=== PATIENT | female | born 1980 | race American Indian/Alaskan Native ===

== ENCOUNTER 2017-06-27 20:58 | Emergency (ER) | payer MEDICAID ==
[2017-06-27] MEDS ORDERED: TYLENOL ONE (23:30)
[2017-06-27] MEDS ORDERED: TYLENOL PO ONE (23:48)
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
[2017-06-28] MEDS ORDERED: NORCO 5/325 PO ONE (01:11)
[2017-06-28] MEDS ORDERED: FLEXERIL PO ONE (01:11)
[2017-06-28 02:24] VITALS: BP 123/83
== END 2017-06-28 01:38 | disposition home or self-care (01) ==
LOC: ED 20:58
DX: S16.1XXA Strain of muscle, fascia and tendon at neck level, initial encounter (principal); M54.6 Pain in thoracic spine; R51 Headache; M25.511 Pain in right shoulder; V89.2XXA Person injured in unspecified motor-vehicle accident, traffic, initial encounter; Y93.89 Activity, other specified; Y92.89 Other specified places as the place of occurrence of the external cause; Y99.8 Other external cause status
CPT/HCPCS: 99282

== ENCOUNTER 2019-11-11 19:13 | Emergency (ER) | payer OTHER, MEDICAID ==
[2019-11-12] MEDS ORDERED: IBUPROFEN 800 MG TAB PO ONE (00:10)
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
[2019-11-12 02:53] VITALS: BP 116/69
== END 2019-11-12 02:30 | disposition home or self-care (01) ==
LOC: ED 19:13
DX: S16.1XXA Strain of muscle, fascia and tendon at neck level, initial encounter (principal); M54.89 Other dorsalgia; V89.2XXA Person injured in unspecified motor-vehicle accident, traffic, initial encounter; Y93.89 Activity, other specified; Y92.410 Unspecified street and highway as the place of occurrence of the external cause; Y99.8 Other external cause status
CPT/HCPCS: 72040; 72070; 72100

== ENCOUNTER 2022-05-02 13:32 | Emergency (ER) | payer MEDICAID ==
[2022-05-02] MEDS ORDERED: KETOROLAC 30 MG/1 ML INJ IM ONE (14:40)
[2022-05-02] MEDS ORDERED: dexAMETHasone 20 MG/5 ML VIAL IM ONE (14:40)
--- NOTE | 2022-05-02 14:41 | Emergency Department Report ---
ED Extremity Problem HPI - General Chief complaint: Pain General Stated complaint: NECK AND SHOULDER PAIN Source: patient Mode of arrival: Ambulatory Limitations: No Limitations - History of Present Illness Initial comments: 41-year-old female presented ED complaining neck and shoulder pain x5 days. Patient states that she was sleeping on the floor x2 days. Patient states she awakened with stiffness in her neck that has progressed to her bilateral shoulder. Patient able to move extremity without any difficulty. Denies any trauma. No obvious deformity noted. No Distracting injury noted. No edema noted. Patient is ambulatory. No acute distress noted. No Ill appearance noted. She denies any IV drug use. MD Complaint: extremity pain -: This morning Location: upper extremity History of Same: Yes Radiation: none Severity scale (0 -10): 8 Quality: aching Consistency: intermittent Improves with: nothing Worsens with: nothing - Related Data Previous Rx's Medication Instructions Recorded Last Taken Type Cyclobenzaprine [Flexeril] 10 mg PO TID PRN 15 Days #30 tab 05/02/22 Unknown Rx Ketorolac [Toradol] 10 mg PO Q6H PRN 5 Days #20 tab 05/02/22 Unknown Rx predniSONE [Deltasone] 50 mg PO QDAY 5 Days #5 tab 05/02/22 Unknown Rx Allergies Allergy/AdvReac Type Severity Reaction Status Date / Time No Known Allergies Allergy Verified 05/02/22 14:07 ED Review of Systems ROS: Stated complaint: NECK AND SHOULDER PAIN Other details as noted in HPI Constitutional: denies: chills, fever Eyes: denies: eye pain, eye discharge, vision change ENT: denies: ear pain, throat pain Respiratory: denies: cough, shortness of breath, wheezing Cardiovascular: denies: chest pain, palpitations Endocrine: no symptoms reported Gastrointestinal: denies: abdominal pain, nausea, diarrhea Genitourinary: denies: urgency, dysuria, discharge Musculoskeletal: denies: back pain, joint swelling, arthralgia Skin: denies: rash, lesions Neurological: denies: headache, weakness, paresthesias Psychiatric: denies: anxiety, depression Hematological/Lymphatic: denies: easy bleeding, easy bruising ED Past Medical Hx - Past Medical History Previous Medical History?: No - Surgical History Past Surgical History?: No - Social History Smoking Status: Current Every Day Smoker Substance Use Type: Marijuana - Medications Home Medications: Home Medications Medication Instructions Recorded Confirmed Last Taken Type Cyclobenzaprine [Flexeril] 10 mg PO TID PRN 15 Days #30 tab 05/02/22 Unknown Rx Ketorolac [Toradol] 10 mg PO Q6H PRN 5 Days #20 tab 05/02/22 Unknown Rx predniSONE [Deltasone] 50 mg PO QDAY 5 Days #5 tab 05/02/22 Unknown Rx ED Physical Exam - General Limitations: No Limitations General appearance: alert, in no apparent distress - Head Head exam: Present: atraumatic, normocephalic - Eye Eye exam: Present: normal appearance - ENT ENT exam: Present: mucous membranes moist - Neck Neck exam: Present: normal inspection - Respiratory Respiratory exam: Present: normal lung sounds bilaterally. Absent: respiratory distress - Cardiovascular Cardiovascular Exam: Present: regular rate, normal rhythm. Absent: systolic murmur, diastolic murmur, rubs, gallop - GI/Abdominal GI/Abdominal exam: Present: soft, normal bowel sounds - Extremities Exam Extremities exam: Present: normal inspection - Back Exam Back exam: Present: normal inspection - Neurological Exam Neurological exam: Present: alert, oriented X3 - Psychiatric Psychiatric exam: Present: normal affect, normal mood - Skin Skin exam: Present: warm, dry, intact, normal color. Absent: rash ED Course Vital Signs 05/02/22 13:40 Temperature 98.5 F Pulse Rate 106 H Respiratory 15 Rate Blood Pressure 102/74 O2 Sat by Pulse 100 Oximetry ED Medical Decision Making - Medical Decision Making 41-year-old female presented ED complaining neck and shoulder pain x5 days. Patient states that she was sleeping on the floor x2 days. Patient states she awakened with stiffness in her neck that has progressed to her bilateral shoulder. Patient able to move extremity without any difficulty. Denies any trauma. No obvious deformity noted. No Distracting injury noted. No edema noted. Patient is ambulatory. No acute distress noted. No Ill appearance noted. She denies any IV drug use. Physical examination is unremarkable Rechecked the patient is resting quietly quietly and comfortable and feeling better. I discussed the results of diagnostic study, my clinical impression and the plan for further treatment with the patient. Patient agrees with plan and discharge at this present time. All question addressed. I have given the patient instruction regarding a diagnosis ,expectation ,follow- up and return precaution. I explained to the patient that emergent condition may arise and to return to the ED for new worsen and any new persisting condition. I have explained the importance of following up with the primary care physician or referral physician listed below has instructed. The patient verbalized understanding of discharge instruction. Critical care attestation.: If time is entered above; I have spent that time in minutes in the direct care of this critically ill patient, excluding procedure time. ED Disposition Clinical Impression: Neck and shoulder pain Disposition: 01 HOME / SELF CARE / HOMELESS Is pt being admited?: No Does the pt Need Aspirin: No Condition: Stable Instructions: Shoulder Pain, Radicular Pain, Shoulder Pain, [id number], Musculoskeletal Pain, How to Use Cold Therapy Additional Instructions: Take medication as prescribed Return to the ED for any worsening symptoms Prescriptions: predniSONE [Deltasone] 50 mg PO QDAY 5 Days #5 tab Cyclobenzaprine [Flexeril] 10 mg PO TID PRN 15 Days #30 tab PRN Reason: Muscle Spasm Ketorolac [Toradol] 10 mg PO Q6H PRN 5 Days #20 tab PRN Reason: Pain Referrals: [facility] [Provider Group] - 3-5 Days Forms: Work/School Release Form(ED) Time of Disposition: 14:43
[2022-05-02 15:09] VITALS: BP 111/73
== END 2022-05-02 15:11 | disposition home or self-care (01) ==
LOC: ED 13:32
DX: M54.2 Cervicalgia (principal); M25.512 Pain in left shoulder; M25.511 Pain in right shoulder; F17.200 Nicotine dependence, unspecified, uncomplicated
CPT/HCPCS: 96372; 99282; J1100; J1885